=== PATIENT | female | born 1975 | race Native Hawaiian/Other Pacific Islander ===

== ENCOUNTER 2017-01-20 08:26 | Observation (INO) | payer OTHER ==
[2017-01-20] VITALS (12 sets, daily range): BP systolic 121–140; BP diastolic 71–87; PULSE 68–82; RESP 16–18; TEMP 97.1–98.3; O2SAT 95–98
[~2017-01-20] VITALS: Ht 152.4 cm; Wt 42.0 kg
[~2017-01-20 08:26] MED LIST: RANI150T PO
[2017-01-20] MEDS ORDERED: MEDR10TA7 PO (08:47)
[2017-01-20] MEDS ORDERED: DIAZEPAM 10 MG TAB PO SCH (09:00)
[2017-01-20] MEDS ORDERED: KETOROLAC TROMETHAMINE 30 MG/ML (IVP) VIAL IV PUSH SCH (09:00)
[2017-01-20] MEDS: SODIUM CHLOR 0.9% 1000 ML INJ 1,000 ML IV SCH (09:00)
[2017-01-20] MEDS ORDERED: ONDANSETRON HCL 4 MG/2 ML VIAL IV SCH (09:00)
[2017-01-20] MEDS ORDERED: ceFAZolin 2 GM PREMIX 50 ML IV SCH (09:00)
[2017-01-20 09:24] LABS: AUTOMATED NEUTROPHIL # 7.4 TH/MM3 (1.8-7.7); BASOPHIL # 0.2 TH/MM3 (0-0.2); BASOPHIL % 1.8 % (0.0-2.0); EOSINOPHIL # 0.2 TH/MM3 (0-0.4); EOSINOPHIL % 1.6 % (0.0-4.0); HEMATOCRIT 42.1 % (35.0-46.0); HEMO FLAGS DIFF FINAL; LYMPH % 18.1 % (9.0-44.0); LYMPHOCYTE # 1.8 TH/MM3 (1.0-4.8); MEAN CELL VOLUME 80.4 FL (80.0-100.0); MEAN CORPUSCULAR HEMOGLOBIN 26.3 PG (27.0-34.0); MEAN CORPUSCULAR HGB CONC 32.7 % (32.0-36.0); MONO % 4.5 % (0.0-8.0); PLATELET COUNT 887 TH/MM3 (150-450); RED BLOOD COUNT 5.24 MIL/MM3 (4.00-5.30); RED CELL DISTRIBUTION WIDTH 13.4 % (11.6-17.2)
[2017-01-20 09:29] LABS: APTT (PATIENT) 33.9 SEC (24.3-30.1); PROTHROMBIN TIME - PATIENT 11.4 SEC (9.8-11.6)
[2017-01-20 09:44] LABS: POTASSIUM 3.4 MEQ/L (3.5-5.1)
[2017-01-20] MEDS ORDERED: MIDAZOLAM HCL 5 MG/5 ML VIAL ONE (11:07)
[2017-01-20] MEDS ORDERED: fentaNYL CITRATE 250 MCG/5 ML AMP ONE (11:08)
[2017-01-20] MEDS ORDERED: ACETAMINOPHEN 325 MG TAB PO PRN ×2 (11:15→12:45)
[2017-01-20] MEDS ORDERED: NALOXONE HCL 0.4 MG/ML AMP IV PRN ×2 (11:15→12:45)
[2017-01-20] MEDS ORDERED: ONDANSETRON HCL 4 MG/2 ML VIAL IVP PRN (11:15)
[2017-01-20] MEDS ORDERED: SODIUM CHLORIDE 0.9% FLUSH 10 ML FLUSH IV FLUSH PRN (11:15)
[2017-01-20] MEDS ORDERED: MAGNESIUM HYDROXIDE SUSP 30 ML CUP PO PRN (11:15)
--- NOTE | 2017-01-20 11:19 | HHI.HP ---
HPI Service [facility] Hospitalists Primary Care Physician Dr. Wayne Admission Diagnosis DUB Chief Complaint: DUB Travel History International Travel<30 Days: No Contact w/Intl Traveler <30 Da: No Traveled to Known Affected Are: No History of Present Illness Mrs. Mo is a pleasant 41 y/o female with hx of essential thrombocytosis and chronic iron deficiency anemia secondary to dysfunctional uterine bleeding secondary to uterine fibroids. She was admitted to uterine artery embolization to help with her menorrhagia. [facility] Hospitalist team was asked to admit the patient to monitor for post-procedural complications. Review of patients labs revealed platelet count of 887,000. In review of outpt labs his platelet count has been in the 800-900,000 since 02/2016. Pt is seen post-procedural and complained of some pelvic pain but otherwise no complaints. The nurses were starting the Dilaudid MANUFACTURING MAINTENANCE MECHANIC. Her daughter was called for interpretation as the pt speaks mainly Mandarin. Review of Systems ROS Limitations: Language Barrier Gastrointestinal: COMPLAINS OF: Abdominal pain Past Family Social History Past Medical History Essential thrombocytosis Menorrhagia related to uterine fibroids Chronic iron deficiency anemia 1SAB Past Surgical History None reported Reported Medications Medroxyprogesterone Acetate 10 Mg Tab 10 Mg PO DAILY Allergies: Coded Allergies: No Known Allergies (Unverified , 01/20/17) Family History Father with Type 2 DM Mother living and healthy 1 brother and 1 sister living and healthy Social History No reported alcohol, tobacco or illicit drug use Pt is [place] and speaks mainly Mandarin HS education, 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 . Emigrated to [facility] 1991. Physical Exam Vital Signs Vital Signs Date Time Temp Pulse Resp B/P Pulse Ox O2 Delivery O2 Flow Rate FiO2 01/20/17 09:14 98 Room Air 01/20/17 08:43 97.9 75 18 130/77 97 Physical Exam GENERAL: This is a well-nourished, well-developed patient, in no apparent distress. HEENT: Atraumatic. Normocephalic. No temporal or scalp tenderness. No scleral icterus.Airway patent. NECK: Trachea midline, supple, nontender. CARDIO: Regular. RESP: CTA bilaterally. No wheezes, rales, or rhonchi. ABD: +BS, soft, non-tender, nondistended. EXT: Extremities without clubbing, cyanosis, or edema. NEURO: Awake and alert. Motor and sensory grossly within normal limits. Normal speech. Laboratory Laboratory Tests Test 01/20/17 09:00 White Blood Count 10.0 Red Blood Count 5.24 Hemoglobin 13.8 Hematocrit 42.1 Mean Corpuscular Volume 80.4 Mean Corpuscular Hemoglobin 26.3 Mean Corpuscular Hemoglobin 32.7 Concent Red Cell Distribution Width 13.4 Platelet Count 887 Mean Platelet Volume 7.2 Neutrophils (%) (Auto) 74.0 Lymphocytes (%) (Auto) 18.1 Monocytes (%) (Auto) 4.5 Eosinophils (%) (Auto) 1.6 Basophils (%) (Auto) 1.8 Neutrophils # (Auto) 7.4 Lymphocytes # (Auto) 1.8 Monocytes # (Auto) 0.4 Eosinophils # (Auto) 0.2 Basophils # (Auto) 0.2 CBC Comment DIFF FINAL Differential Comment Prothrombin Time 11.4 Prothromb Time International 1.0 Ratio Activated Partial 33.9 Thromboplast Time Sodium Level 138 Potassium Level 3.4 Chloride Level 105 Carbon Dioxide Level 25.0 Anion Gap 8 Blood Urea Nitrogen 13 Creatinine 0.51 Estimat Glomerular Filtration 132 Rate Random Glucose 86 Calcium Level 9.3 Result Diagram: 01/20/17 0900 01/20/17 0900 Septic Shock Reassessment Heart: Regular rate and rhythm Lungs: Clear Skin: Warm Assessment and Plan Problem List: (1) Menorrhagia Status: Chronic Plan: - Pt is being admitted for monitoring post-procedure for UAB performed by IR on 01/20/17 for her menorrhagia related to uterine fibroids. - Post-op pain control with Dilaudid MANUFACTURING MAINTENANCE MECHANIC and Toradol Q6H scheduled - Levaquin 500mg po daily ordered - Diet as tolerated - Monitor labs - Supportive care (2) Essential thrombocytosis Status: Chronic Plan: - Pt was previously followed by Dr. Head as an outpt - In review of outpt labs her platelet count has been between 800-900,000 since 02/2016 - Monitor labs Assessment and Plan Patient examined. Assessment and plan formulated with Josie Craig PA-C. I agree with the above. Josie Craig Jan 20, 2017 11:19 Darek Maya DO Jan 23, 2017 22:46
[2017-01-20] MEDS ORDERED: POTASSIUM CHLORIDE 20 MEQ CONTROLLED RELEASE TAB PO ONE (12:30)
[2017-01-20] MEDS ORDERED: ONDANSETRON HCL 4 MG/2 ML VIAL IV PRN (12:45)
[2017-01-20] MEDS ORDERED: HYDROmorphone HCL PCA 6 MG/30 ML IV SCH (12:45)
--- NOTE | 2017-01-20 12:45 | PD.RAD ---
Post Procedure Progress Note Pre Procedure Diagnosis: (1) Menorrhagia Post Procedure Diagnosis: (1) Menorrhagia Procedure Date: Jan 20, 2017 Supervising Radiologist: Yusuf Guo JR Proceduralist/Assist: Vic Gonzales, RT(R), Isabella Vincent RT(R)() Anesthesia: Conscious Sedation Plan of Activity Patient to Unit: ROPU Patient Condition: Good See PACS Report for procedural detail/treatment Vascular-Arterial Procedure Procedure 1 Procedure(s): Embolization Access Access Site(s): Right Femoral Artery Findings: Successful UAE. Plan Admit overnight. Likely home tomorrow Jr. Brant,Yusuf Andujar MD Jan 20, 2017 12:45
[2017-01-20] MEDS ORDERED: IODIXANOL 320 MG/ML 50 ML VIAL (for RAD SPEC) I-ARTERIAL ONE (12:50)
[2017-01-20] MEDS ORDERED: GELATIN 12 MM/7 MM FOAM I-ARTERIAL ONE (12:50)
[2017-01-20] MEDS ORDERED: PCA - TOTAL MG DILAUDID DELIVERED PER SHIFT OTHER SCH (14:00)
--- NOTE | 2017-01-20 14:40 | RADRPT ---
EXAM DATE/TIME: 01/20/2017 10:59 [facility] COMPARISON: No previous studies available for comparison. INDICATIONS : Patient is in need of embolization of bilateral uterine arteries due to menorrhagia. Patient with ane faby relating to excessive bleeding at menstruation. MEDICAL HISTORY : History of multiple uterine fibroids, thrombocytosis, anemia, uterine leiomyoma. SURGICAL HISTORY : History of cervical biopsy. ENCOUNTER: Initial ACUITY: 2 months PAIN SCORE: 0/10 FLUORO TIME: 13.6 minutes IMAGE SERIES: 8 ACCESS SITE: Right Femoral artery SEDATION TIME: 60 minutes CONTRAST: 1.) 84 cc Visipaque (iodixanol) MEDICATION(S): 1.) 1.5 mg midazolam (Versed) IV 2.) 100 mcg fentanyl (Sublimaze) IV Vancomycin within 2 hrs of procedure, Ancef (or alternative) within 1 hr of procedure. Intra-procedural antibiotics were given as prescribed above. DEVICE(S): 1.) Bilateral uterine artery 500-710 microns PVA 2.) Bilateral uterine artery 12-7mm Gelfoam PROCEDURE : 1. Ultrasound-guided puncture of the right common femoral artery. 2. Left internal iliac artery arteriogram. 3. Left uterine artery arteriogram. 4. Embolization of the left uterine artery. 5. Right internal iliac artery arteriogram. 6. Right uterine artery arteriogram. 7. Embolization of the right uterine artery. 8. Conscious sedation with continuous EKG and oximetry monitoring. The risks, benefits and alternatives to the procedure were explained and verbal and written consent w as obtained. The site was prepped in sterile fashion. Full sterile technique was used, including ca p, mask, sterile gloves and gown and a large sterile sheet. Hand hygiene and 2% chlorhexidine and/or betadine/alcohol prep was utilized per protocol for cutaneous antisepsis. The skin and subcutaneous tissues were infiltrated with local anesthetic solution. With ultrasound and fluoroscopic guidance the right femoral artery was punctured. An Omni Flush cath eter was placed over aortic bifurcation into the left internal iliac artery where imaging was perform ed to identify the uterine artery. The uterine artery was subsequently catheterized and angiography was performed demonstrating multiple feeding vessels supplying the uterine fibroids. The uterus is gr ossly enlarged and lobulated. Embolization was performed using 500-700 m polyvinyl alcohol to comple te stasis. Followup angiography from the internal iliac vessel demonstrates complete stasis and no a ntegrade flow within the left uterine artery. An Omni Flush catheter was then used to select the ipsilateral right internal iliac artery where imag ing was performed to identify the uterine artery. The uterine artery was subsequently catheterized a nd angiography was performed demonstrating multiple feeding vessels supplying the uterine fibroids. Embolization was performed using 500-700 m polyvinyl alcohol to complete stasis. Followup angiograp hy from the internal iliac vessel demonstrates complete stasis and no antegrade flow within the left uterine artery. Conscious sedation was performed with the prescribed dosages and duration as above in the presence of an independent trained radiology nurse to assist in the monitoring of the patient. EKG and oximetry remained stable throughout the procedure. The patient tolerated the procedure well and there were n o complications. The patient was sent to post anesthesia recovery in stable condition. CONCLUSION: Uncomplicated uterine artery embolization as above. Yusuf Guo Jr., MD on January 20, 2017 at 14:29 Board Certified Radiologist. This report was verified electronically.
[2017-01-20] MEDS: KETOROLAC TROMETHAMINE 10 MG TAB PO SCH ×2 (18:00→23:34)
[2017-01-20] MEDS: SODIUM CHLORIDE 0.9% FLUSH 10 ML FLUSH IV FLUSH SCH (21:00)
[2017-01-21] VITALS (7 sets, daily range): BP systolic 110–130; BP diastolic 63–73; PULSE 57–86; RESP 16–18; TEMP 97.3–98.7; O2SAT 97–99
[2017-01-21] MEDS: LEVOFLOXACIN 500 MG TAB PO SCH ×2 (01:32→12:48)
[2017-01-21] MEDS: SODIUM CHLOR 0.9% 1000 ML INJ 1,000 ML IV SCH ×3 (05:00→14:34)
[2017-01-21] MEDS: KETOROLAC TROMETHAMINE 10 MG TAB PO SCH ×3 (05:23→17:06)
[2017-01-21 08:40] LABS: AUTOMATED NEUTROPHIL # 10.1 TH/MM3 (1.8-7.7); BASOPHIL # 0.2 TH/MM3 (0-0.2); BASOPHIL % 1.3 % (0.0-2.0); EOSINOPHIL # 0.2 TH/MM3 (0-0.4); EOSINOPHIL % 1.4 % (0.0-4.0); HEMATOCRIT 39.1 % (35.0-46.0); HEMO FLAGS DIFF FINAL; LYMPH % 10.7 % (9.0-44.0); LYMPHOCYTE # 1.3 TH/MM3 (1.0-4.8); MEAN CELL VOLUME 80.3 FL (80.0-100.0); MEAN CORPUSCULAR HEMOGLOBIN 25.8 PG (27.0-34.0); MEAN CORPUSCULAR HGB CONC 32.2 % (32.0-36.0); MONO % 4.3 % (0.0-8.0); NEUT % 82.3 % (16.0-70.0); PLATELET COUNT 820 TH/MM3 (150-450); RED BLOOD COUNT 4.86 MIL/MM3 (4.00-5.30); RED CELL DISTRIBUTION WIDTH 13.6 % (11.6-17.2); WHITE BLOOD COUNT 12.2 TH/MM3 (4.0-11.0)
[2017-01-21] MEDS ORDERED: medroxyPROGESTERone ACETATE 10 MG TAB PO SCH (09:00)
[2017-01-21] MEDS: SODIUM CHLORIDE 0.9% FLUSH 10 ML FLUSH IV FLUSH SCH (09:00)
[2017-01-21 09:11] LABS: BICARBONATE 22.7 MEQ/L (21.0-32.0); POTASSIUM 3.8 MEQ/L (3.5-5.1)
[2017-01-21] MEDS ORDERED: oxyCODONE/ACETAMINOPHEN 5 MG/325 MG TAB PO PRN (10:00)
--- NOTE | 2017-01-21 13:16 | HHI.DCPOC ---
Discharge Care Plan Diagnosis: (1) Chronic anemia (2) Essential thrombocytosis (3) Menorrhagia Goals to Promote Your Health * To prevent worsening of your condition and complications * To maintain your health at the optimal level Directions to Meet Your Goals Take your medications as prescribed Follow your dietary instruction Follow activity as directed Keep your appointments as scheduled Take your immunizations and boosters as scheduled If your symptoms worsen call your PCP, if no PCP go to Urgent Care Center or Emergency Room Smoking is Dangerous to Your Health. Avoid second hand smoke Call the 24-hour hour crisis hotline for domestic abuse at Josie Craig Jan 21, 2017 13:16 Darek Maya DO Jan 23, 2017 23:05
--- NOTE | 2017-01-21 14:42 | EKG ---
Date Performed: 01/20/2017 Time Performed: 18:39:09 PTAGE: 41 years EKG: Sinus rhythm NORMAL ECG NO PREVIOUS TRACING DOCTOR: Trish Lowery Interpretating Date/Time 01/21/2017 14:40:29
[2017-01-21] MEDS ORDERED: PROM1SUP7 RECTAL (16:35)
[2017-01-21] MEDS ORDERED: LEVA500T20 PO (16:35)
[2017-01-21] MEDS ORDERED: OXYC1TAB63 PO (16:35)
[2017-01-21] MEDS ORDERED: KETO10 PO (16:35)
--- NOTE | 2017-01-21 16:46 | HHI.PR ---
Subjective Remarks Pt has been well today Pain is controlled She is cleared for discharge by radiology Objective Vitals Vital Signs Date Time Temp Pulse Resp B/P Pulse Ox O2 Delivery O2 Flow Rate FiO2 01/21/17 16:00 98.4 76 18 121/65 99 01/21/17 12:00 97.3 70 18 118/70 97 01/21/17 09:01 Room Air 01/21/17 08:08 69 01/21/17 08:00 97.6 74 18 110/63 98 01/21/17 06:00 18 01/21/17 05:57 98.2 81 16 116/73 98 01/21/17 00:42 86 01/21/17 00:34 16 01/21/17 00:00 98.7 57 16 130/73 97 01/20/17 20:00 98.3 81 16 132/71 95 01/20/17 18:00 97.1 75 18 134/87 96 01/20/17 01/20/17 01/21/17 15:00 23:00 07:00 Intake Total 240 ml 250 ml Output Total 500 ml 450 ml Balance -260 ml -200 ml Intake Oral 240 ml 250 ml Output Urine Total 500 ml 450 ml # Bowel Movements 0 Result Diagram: 01/21/17 0800 01/21/17 0800 Other Results Laboratory Tests Test 01/20/17 01/21/17 09:00 08:00 White Blood Count 10.0 TH/MM3 12.2 TH/MM3 Red Blood Count 5.24 MIL/MM3 4.86 MIL/MM3 Hemoglobin 13.8 GM/DL 12.6 GM/DL Hematocrit 42.1 % 39.1 % Mean Corpuscular Volume 80.4 FL 80.3 FL Mean Corpuscular Hemoglobin 26.3 PG 25.8 PG Mean Corpuscular Hemoglobin 32.7 % 32.2 % Concent Red Cell Distribution Width 13.4 % 13.6 % Platelet Count 887 TH/MM3 820 TH/MM3 Mean Platelet Volume 7.2 FL 7.2 FL Neutrophils (%) (Auto) 74.0 % 82.3 % Lymphocytes (%) (Auto) 18.1 % 10.7 % Monocytes (%) (Auto) 4.5 % 4.3 % Eosinophils (%) (Auto) 1.6 % 1.4 % Basophils (%) (Auto) 1.8 % 1.3 % Neutrophils # (Auto) 7.4 TH/MM3 10.1 TH/MM3 Lymphocytes # (Auto) 1.8 TH/MM3 1.3 TH/MM3 Monocytes # (Auto) 0.4 TH/MM3 0.5 TH/MM3 Eosinophils # (Auto) 0.2 TH/MM3 0.2 TH/MM3 Basophils # (Auto) 0.2 TH/MM3 0.2 TH/MM3 CBC Comment DIFF FINAL DIFF FINAL Differential Comment Prothrombin Time 11.4 SEC Prothromb Time International 1.0 RATIO Ratio Activated Partial 33.9 SEC Thromboplast Time Sodium Level 138 MEQ/L 138 MEQ/L Potassium Level 3.4 MEQ/L 3.8 MEQ/L Chloride Level 105 MEQ/L 106 MEQ/L Carbon Dioxide Level 25.0 MEQ/L 22.7 MEQ/L Anion Gap 8 MEQ/L 9 MEQ/L Blood Urea Nitrogen 13 MG/DL 9 MG/DL Creatinine 0.51 MG/DL 0.39 MG/DL Estimat Glomerular Filtration 132 ML/MIN 180 ML/MIN Rate Random Glucose 86 MG/DL 79 MG/DL Calcium Level 9.3 MG/DL 8.3 MG/DL Imaging Last Impressions Embolization, Transcatheter 01/20/17 1003 Signed Impressions: Service Date/Time: Friday, January 20, 2017 10:59 - CONCLUSION: Uncomplicated uterine artery embolization as above. Yusuf Guo Jr., MD Objective Remarks General: NAD, AAOx3 Chest: CTA Cardiac: Regular Abd: +BS, soft ND/NT Ext: No edema A/P Problem List: (1) Menorrhagia Status: Chronic Plan: - Pt is being admitted for monitoring post-procedure for UAB performed by IR on 01/20/17 for her menorrhagia related to uterine fibroids. - Pain meds for discharge have been hand written by IR, including Ketorolac 10mg Q6H and Percocet Q4HPRN - Levaquin 500mg po daily x 5 days and Phenergan 25mg supp Q8H PRN also ordered per IR for discharge. - Pt tolerating her diet - Stable for discharge. - She has an appointment already scheduled for fu with IR - Pt should followup with her PCP, Dr. Wayne, in 1 week as well. (2) Essential thrombocytosis Status: Chronic Plan: - Pt was previously followed by Dr. Head as an outpt - In review of outpt labs her platelet count has been between 800-900,000 since 02/2016 - Monitor labs Assessment and Plan Patient examined. Assessment and plan formulated with Josie Craig PA-C. I agree with the above. Josie Craig Jan 21, 2017 16:46 Darek Maya DO Jan 23, 2017 22:45
== END 2017-01-21 18:07 | disposition home or self-care (01) ==
LOC: HROP 08:26 → HRIP 08:32 → HROP 18:00 → HOCB 18:01
PROVIDERS: ADMIT Hospitalist; ATTEND Hospitalist
DX: N92.0 Excessive and frequent menstruation with regular cycle (principal); D25.9 Leiomyoma of uterus, unspecified; D47.3 Essential (hemorrhagic) thrombocythemia; D50.9 Iron deficiency anemia, unspecified; Z01.810 Encounter for preprocedural cardiovascular examination
CPT/HCPCS: 36247; 37243; 75736; 75774; 76937; 80048; 85025; 85610; 85730; 93005; 99152; 99153; C1769; C1887; C1894; G0378; J0690; J1885; J2250; J2405; J3010; J7030; Q9967

== ENCOUNTER 2017-01-28 13:21 | Day surgery (SDC) | payer OTHER ==
[~2017-01-28 13:21] MED LIST changes: +KETO10 PO; +LEVA500T20 PO; +MEDR10TA7 PO; +OXYC1TAB63 PO; +PROM1SUP7 RECTAL; -RANI150T PO
[2017-01-28 13:43] VITALS: BP 125/73; PULSE 93; RESP 18; TEMP 97.7; O2SAT 100
--- NOTE | 2017-01-28 16:13 | RADRPT ---
EXAM DATE/TIME: 01/28/2017 00:00 [facility] COMPARISON : No previous studies available for comparison. INDICATIONS : POST UFE OBJECTIVE: Temperature: 97.7 Heart Rate: 93 Blood Pressure: 125/73 Respiratory: 20 Oximetry: 100 PNEUMONIA VACCINE: HISTORY OF PRESENT ILLNESS: Posterior uterine fibroid embolization. Patient has no abdominal pain but does complain of discomfort in the right inguinal region, the site of access. PAST MEDICAL HISTORY : 1. Menorrhagia 2. Fibroids 3. Uterine Leiomyoma 4. Anemia PAST SURGICAL HISTORY : 1. UFE 2. Cervical Bx SOCIAL HISTORY : No alcohol use. Tobacco;none. MEDICATIONS: 1. Lortab 5/325 mg prn 1 po q 4 hours. 30 tabs PHYSICAL EXAMINATION: Extensive bruising in the right groin region with a small hematoma. ASSESSMENT: Bruising in the right groin region. No ongoing bleeding or significant hematoma. No pelvic pain. PLAN: Additional 5 days of oral pain medication for significant discomfort in the right inguinal region. 1. Followup with Dr. Guzman TIME SPENT: 20 minutes Alex Bergeron MD on January 28, 2017 at 16:08 Board Certified Radiologist. This report was verified electronically.
== END 2017-01-28 16:00 | disposition home or self-care (01) ==
LOC: HROP 13:21 → HRIP 13:27 → HROP 16:00
PROVIDERS: ATTEND Radiology Body Imaging
DX: D25.9 Leiomyoma of uterus, unspecified (principal)